=== PATIENT | male | born 2000 | race Asian ===

== ENCOUNTER 2018-05-08 14:53 | Emergency (ER) | payer OTHER ==
--- NOTE | 2018-05-08 15:21 | EDPHY ---
General Time Seen by Provider: 05/08/18 15:15 Narrative: CHIEF COMPLAINT: Shoulder dislocation HISTORY OF PRESENT ILLNESS: Patient presents by EMS with complaints of shoulder dislocation. He states that he was snowboarding just prior to arrival at [place], when he fell landing on the right shoulder. He was wearing a helmet denies head strike or loss of consciousness. His only complaint is right shoulder pain. He thinks it is dislocated. He has severe pain in the right shoulder was constant. Worse with palpation and movement. Improved at rest. Does not radiate. He has no pain or numbness in the right arm distal to the injury. He has no chest, back or abdominal pain. No shortness of breath. No other associated complaints or modifying factors DOMINANT EXTREMITY: Right-hand dominant. ESTABLISHED ORTHOPEDIST: None REVIEW OF SYSTEMS: Ten systems reviewed and are negative unless otherwise noted in the HPI PAST MEDICAL HISTORY: Uncomplicated PAST SURGICAL HISTORY: No surgical history SOCIAL HISTORY: Nonsmoker. [employer] student. Originally from [place] FAMILY HISTORY: Noncontributory EXAMINATION: General Appearance: Alert, no distress HEENT: Normocephalic. Atraumatic. Pupils equal round reactive with EOM symmetric Neck: Supple nontender. No midline tenderness, crepitus, step-off or deformity. Cardiovascular: Regular rhythm. Radial pulses are symmetric good signs of perfusion the right upper extremity. Respiratory: Lungs clear in all [place]ak. Neurological: Cranial nerves 2-12 grossly intact. A&O, light sensory symmetric at C5, computer systems auditor and interossei strength symmetric. Skin: Warm and dry, no rash. There is a describe birthmark to the right lateral shoulder. There is no tenting of no laceration puncture. Extremities: Squaring and step-off of the right shoulder with tenderness about the right shoulder joint. Range of motion not tested in the right shoulder due to suspected dislocation. Range of motion of the elbows and wrist symmetric. All compartments are soft the right upper extremity. He is neuro intact distally the right shoulder injury. Psychiatric: Mood and affect normal DIFFERENTIAL DIAGNOSES: Including but not limited to shoulder dislocation, subluxation, fracture, sprain , strain MDM: 3:10 p.m. Snowboarding injury with suspected right shoulder dislocation. No obvious injury elsewhere. No evidence of fracture. He is neuro intact distally. He is awake alert. No acute distress. I have administered intra-articular plain lidocaine and x-ray's pending. 3:15 p.m. X-ray as read by me, radiologist, reveals anterior dislocation with no fracture. 3:20 p.m. Right shoulder has been reduced with intra-articular lidocaine only. No procedural sedation. Tolerated well. Neuro intact distally. Post reduction film pending. 3:30 p.m. Post reduction film as read by me, without radiologist reveals successful reduction with anatomic alignment. He remains in a sling and swathe. We discussed rest and ice. We discussed anti-inflammatories and pain medication as needed. We discussed follow up with Orthopedics for definitive care. We discussed range of motion limitations. We discussed ED precautions. I have answered all his questions. He is well-appearing. Discharged home stable condition. PROCEDURE: Closed reduction of shoulder Consent: Verbal Location: Right shoulder Anesthesia: Intra-articular Marcaine, 0.25%. Plain. 10 mL Procedure: After time-out and good anesthesia as above, the right arm was placed in traction with countertraction of the shoulder and massage of the humeral head. I was able to reduce this without difficulty. Complications: None. Tolerated well. Post-reduction film: Successful reduction. SUPERVISION: This patient was independently evaluated without direct involvement of or examination by the attending physician. - History Smoking Status: Never smoked - Objective Vital Signs: Initial Vital Signs Temperature (C) 98.4 F 05/08/18 14:58 Heart Rate 76 05/08/18 14:58 Respiratory Rate 16 05/08/18 14:58 Blood Pressure 113/86 H 05/08/18 14:58 O2 Sat (%) 96 05/08/18 14:58 O2 Delivery Mode Room Air Allergies/Adverse Reactions: No Known Allergies Allergy (Unverified 05/08/18 15:01) Home Medications: Medication Instructions Recorded oxyCODONE HCL/ACETAMINOPHEN 1 each PO Q4-6PRN PRN #7 tablet 05/08/18 [Percocet 5-325 mg Tablet] Departure - Departure Disposition: Home, Routine, Self-Care Clinical Impression: Anterior shoulder dislocation Qualifiers: Encounter type: initial encounter Laterality: right Qualified Code(s): S43.014A - Anterior dislocation of right humerus, initial encounter Condition: Good Instructions: Shoulder Dislocation (ED) Additional Instructions: 1. Medications as discussed as needed, including ibuprofen 600mg every 8 hours as needed. Do not take in conjunction with anticoagulants or other NSAIDs 2. Follow up with Orthopedics for definitive care 3. Rest, ice and elevation often. 4. ED precautions as discussed for worsening pain, redness, fever, changes in range of motion, changes in sensation 5. Keep your right arm in the splint except when showering sleeping until seen by Orthopedics. Do not raise her arm up above your shoulder. Referrals: Yaya Loera MD [Medical Doctor] - As per Instructions Prescriptions: oxyCODONE HCL/ACETAMINOPHEN [Percocet 5-325 mg Tablet] 1 each PO Q4-6PRN PRN #7 tablet PRN Reason: Pain, Breakthrough
[2018-05-08 15:57] VITALS: BP 133/74
== END 2018-05-08 15:57 | disposition home or self-care (01) ==
PROC: 0RSJXZZ Reposition Right Shoulder Joint, External Approach (ICD-10-PCS; principal; 2018-05-08)
DX: S43.014A Anterior dislocation of right humerus, initial encounter (principal); V00.311A Fall from snowboard, initial encounter; Y93.23 Activity, snow (alpine) (downhill) skiing, snowboarding, sledding, tobogganing and snow tubing